=== PATIENT | male | born 1965 | race Caucasian/White ===

== ENCOUNTER → 2021-08-10 | Outpatient (CLI) | payer OTHER | LOC: HYPER 07:57 | PROVIDERS: ATTEND Emergency Medicine | DX: T81.31XA Disruption of external operation (surgical) wound, not elsewhere classified, initial encounter (principal); E11.622 Type 2 diabetes mellitus with other skin ulcer; L97.122 Non-pressure chronic ulcer of left thigh with fat layer exposed; L02.416 Cutaneous abscess of left lower limb; M72.6 Necrotizing fasciitis; Z87.891 Personal history of nicotine dependence; Z86.73 Personal history of transient ischemic attack (TIA), and cerebral infarction without residual deficits; Z98.890 Other specified postprocedural states; Z79.01 Long term (current) use of anticoagulants; Z79.82 Long term (current) use of aspirin; Z79.4 Long term (current) use of insulin; Z79.899 Other long term (current) drug therapy; Y83.8 Other surgical procedures as the cause of abnormal reaction of the patient, or of later complication, without mention of misadventure at the time of the procedure; Y92.89 Other specified places as the place of occurrence of the external cause ==

== ENCOUNTER → 2021-08-24 | Outpatient (CLI) | payer OTHER | LOC: HYPER 05:16 | PROVIDERS: ATTEND Emergency Medicine | DX: T81.31XD Disruption of external operation (surgical) wound, not elsewhere classified, subsequent encounter (principal); E11.622 Type 2 diabetes mellitus with other skin ulcer; L97.122 Non-pressure chronic ulcer of left thigh with fat layer exposed; L02.416 Cutaneous abscess of left lower limb; M72.6 Necrotizing fasciitis; Z87.891 Personal history of nicotine dependence; Z86.73 Personal history of transient ischemic attack (TIA), and cerebral infarction without residual deficits; Z98.890 Other specified postprocedural states; Z79.01 Long term (current) use of anticoagulants; Z79.82 Long term (current) use of aspirin; Z79.4 Long term (current) use of insulin; Z79.899 Other long term (current) drug therapy; Y83.8 Other surgical procedures as the cause of abnormal reaction of the patient, or of later complication, without mention of misadventure at the time of the procedure ==

== ENCOUNTER → 2021-09-14 | Outpatient (CLI) | payer OTHER | LOC: HYPER 08:41 | PROVIDERS: ATTEND Emergency Medicine | DX: T81.31XD Disruption of external operation (surgical) wound, not elsewhere classified, subsequent encounter (principal); E11.622 Type 2 diabetes mellitus with other skin ulcer; L97.122 Non-pressure chronic ulcer of left thigh with fat layer exposed; L02.416 Cutaneous abscess of left lower limb; M72.6 Necrotizing fasciitis; E66.9 Obesity, unspecified; Z87.891 Personal history of nicotine dependence; Z86.73 Personal history of transient ischemic attack (TIA), and cerebral infarction without residual deficits; Z79.01 Long term (current) use of anticoagulants; Z79.82 Long term (current) use of aspirin; Z68.36 Body mass index [BMI] 36.0-36.9, adult; Z79.4 Long term (current) use of insulin; Y83.8 Other surgical procedures as the cause of abnormal reaction of the patient, or of later complication, without mention of misadventure at the time of the procedure ==

== ENCOUNTER → 2021-10-06 | Outpatient (CLI) | payer OTHER | LOC: HYPER 08:25 | PROVIDERS: ATTEND Emergency Medicine | DX: T81.31XD Disruption of external operation (surgical) wound, not elsewhere classified, subsequent encounter (principal); E11.622 Type 2 diabetes mellitus with other skin ulcer; L97.122 Non-pressure chronic ulcer of left thigh with fat layer exposed; M72.6 Necrotizing fasciitis; L02.415 Cutaneous abscess of right lower limb; Z86.73 Personal history of transient ischemic attack (TIA), and cerebral infarction without residual deficits; Z87.891 Personal history of nicotine dependence; Z79.4 Long term (current) use of insulin; Z79.82 Long term (current) use of aspirin; Z79.899 Other long term (current) drug therapy; Y83.8 Other surgical procedures as the cause of abnormal reaction of the patient, or of later complication, without mention of misadventure at the time of the procedure ==

== ENCOUNTER → 2021-10-19 | Outpatient (CLI) | payer OTHER ==
[~2021-10-19] VITALS: Ht 193 cm; Wt 149.7 kg
[~2021-10-19] MED LIST: CYMBALTA20 MG PO; ELIQUIS5 MG PO; FUROSEMIDE 40 M40 MG PO; HUMALOG100 UNIT/1 SUBQ; HYDROCODON-ACE1 EAC7 PO; JANUVIA100 MG PO; JARDIANCE25 MG PO; LANOXIN 0.25M0.25 M1 PO; LANTUS SUBQ; LIPITOR80 MG PO; LOPRESSOR50 MG PO; METFORMIN HCL1000 M1 PO; ZETIA10 MG PO
[2021-10-19 10:53] VITALS: BP 141/87
--- NOTE | 2021-10-19 11:41 | NUR ---
Pain Clinic Assessment: 1. History of Osteoarthritis: GENERALIZED SHOULDER AND RIGHT HIP History of Rheumatoid Arthritis: NONE 2. Height: 6 ft. 4 in. 193.0 cm. Weight: 330.0 lb. oz. 149.688 kg. Patient's BMI: 40.2 3. Vital Signs: BP: 141/87 Pulse: 87 Resp: 22 Temp: 02 Sat: 98 ECG Mon: 4. Pain Intensity: 4 TO 9 5. Fall Risk: Dizziness: N Needs help standing or walking: Y Fallen in the last 3 months: Y Fall risk comments: 6. Patient on Blood Thinner: Y 7. History of Hypertension: Y 8. Opioid Therapy greater than 6 weeks: Y Opiate Contract Signed: 9. Risk Assessment Tool Provided: HIGH-8 10. Functional Assessment Tool: 50/70 11. Recreational Drug Use: Current within past 3 mos Drug Type: MARIJUANA Tobacco Use: Never Smoker Tobacco Type: Amount or Packs/day: How Many Years: Alcohol Use: Yes Frequency: Special Occasions Quant:
== END ==
LOC: PAIN 06:55
PROVIDERS: ATTEND Anesthesiology Pain Medicine
DX: E66.01 Morbid (severe) obesity due to excess calories (principal); M16.11 Unilateral primary osteoarthritis, right hip; M19.011 Primary osteoarthritis, right shoulder; M79.2 Neuralgia and neuritis, unspecified